=== PATIENT | male | born 1970 | race Two or more races ===

== ENCOUNTER → 2024-01-18 | Outpatient (CLI) | payer BC, SELFPAY ==
[2024-01-18 08:59] LABS: Glucose Estimated Average 223 mg/dL (80-131); Hemoglobin A1C 9.4 % Hgb (4.8-6.0)
[2024-01-18 09:04] LABS: Alanine Aminotransferase 30 U/L (10-49); Albumin, Serum 4.6 gm/dL (3.5-5.0); Albumin/Globulin Ratio 1.8 (1.2-2.2); Alkaline Phosphatase 54 U/L (46-116); Anion Gap 7 (7-16); Aspartate Amino Transferase 17 U/L (0-34); BUN/Creatinine Ratio 20 Ratio (12-20); Bilirubin,Total 0.4 mg/dL (0.3-1.2); Blood Urea Nitrogen 20 mg/dL (9-23); Calcium 9.4 mg/dL (8.3-10.6); Calcium (Corrected) 9.4 mg/dL (8.5-10.1); Carbon Dioxide 26.5 mMol/L (20.0-31.0); Cardiac Risk Estimate 3.2 RATIO (4.0-6.7); Chloride 104 mMol/L (98-107); Cholesterol 151 mg/dL (132-200); Globulin 2.6 gm/dL (2.3-3.5); Glucose 226 mg/dL (74-106); HDL Cholesterol 47 mg/dL (40-60); LDL Cholesterol,Calculated 84 mg/dL (0-130); Osmolality,Calculated 283 (275-295); Potassium 4.2 mMol/L (3.4-5.1); Sodium 137 mMol/L (136-145); Total Protein 7.2 gm/dL (5.7-8.2); Triglycerides 100 mg/dL (30-150); eGFR > 60 See Note
== END | disposition home or self-care (01) ==
LOC: COPL 06:49
PROVIDERS: PCP Family Medicine; Referring Provider Family Medicine; Visit Provider Family Medicine
DX: E78.2 Mixed hyperlipidemia (principal); E11.65 Type 2 diabetes mellitus with hyperglycemia; I10 Essential (primary) hypertension
CPT/HCPCS: 36415; 80053; 80061; 83036

== ENCOUNTER → 2024-06-27 | Outpatient (CLI) | payer BC, SELFPAY ==
[2024-06-27 08:08] LABS: Collection Type, Urine Clean Catch
[2024-06-27 08:41] LABS: Basophils # (Auto) 0.1 Thou/mm3 (0.0-0.2); Basophils % (Auto) 1 % (0-2.5); Eosinophils # (Auto) 0.2 Thou/mm3 (0.0-0.5); Eosinophils % (Auto) 3 % (0-10); Hematocrit 45.1 % (41.0-53.0); Hemoglobin 15.9 g/dL (13.5-16.0); Immature Granulocytes % (Auto) 0 % (0-0); Immature Granulocytes Auto 0.02 Thou/mm3 (0.00-0.00); Lymphocytes # (Auto) 1.8 Thou/mm3 (1.0-4.8); Lymphocytes % (Auto) 32 % (10-50); Mean Corpuscular HGB Conc 35.3 g/dl (31.0-37.0); Mean Corpuscular Volume 94 fL (80-100); Monocytes # (Auto) 0.5 Thou/mm3 (0.0-0.8); Monocytes % (Auto) 8 % (0-12); Neutrophils # (Auto) 3.1 Thou/mm3 (1.8-7.7); Neutrophils % (Auto) 55 % (37-80); Nucleated Red Blood Cell % 0 /100 WBC (0); Platelet Count 225 Thou/mm3 (140-440); RDW Standard Deviation 40.9 fL (35.1-43.9); Red Blood Count 4.82 Miln/mm3 (4.50-5.90); White Blood Count 5.6 Thou/mm3 (3.8-10.6)
[2024-06-27 08:45] LABS: Glucose Estimated Average 166 mg/dL (80-131); Hemoglobin A1C 7.4 % Hgb (4.8-6.0)
[2024-06-27 08:51] LABS: Bilirubin,Urine Negative (Negative); Blood,Urine Negative (Negative); Clarity,Urine Clear (Clear/Hazy); Color,Urine Lt-Yellow (Lt Yel-Yel); Glucose, Urine 4+ (Negative); Ketones,Urine Negative (Negative); Leukocyte Esterase,Urine Negative (Negative); Nitrite,Urine Negative (Negative); PH,Urine 5.5 (5.0-7.0); Protein,Urine Negative (Neg - Trace); RBC,Urine 3 /hpf (0-3); Specific Gravity,Urine 1.038 (1.001-1.035); Squamous Epithelial Cell,Urine < 1 /hpf (0-5); Urobilinogen,Urine Negative mg/dL (0.0-1.0); WBC,Urine < 1 /hpf (0-5)
[2024-06-27 08:52] LABS: Alanine Aminotransferase 22 U/L (10-49); Albumin, Serum 4.3 gm/dL (3.5-5.0); Albumin/Globulin Ratio 1.9 (1.2-2.2); Alkaline Phosphatase 50 U/L (46-116); Anion Gap 6 (7-16); Aspartate Amino Transferase 16 U/L (0-34); BUN/Creatinine Ratio 21 Ratio (12-20); Bilirubin,Total 0.5 mg/dL (0.3-1.2); Blood Urea Nitrogen 19 mg/dL (9-23); Calcium 8.8 mg/dL (8.3-10.6); Calcium (Corrected) 8.8 mg/dL (8.5-10.1); Carbon Dioxide 26.9 mMol/L (20.0-31.0); Cardiac Risk Estimate 2.8 RATIO (4.0-6.7); Chloride 109 mMol/L (98-107); Cholesterol 152 mg/dL (132-200); Creatinine (Component) 0.9 mg/dL (0.6-1.3); Globulin 2.3 gm/dL (2.3-3.5); Glucose 204 mg/dL (74-106); HDL Cholesterol 54 mg/dL (40-60); LDL Cholesterol,Calculated 77 mg/dL (0-130); Osmolality,Calculated 291 (275-295); Potassium 4.5 mMol/L (3.4-5.1); Sodium 142 mMol/L (136-145); Total Protein 6.6 gm/dL (5.7-8.2); Triglycerides 104 mg/dL (30-150); eGFR > 60 See Note
[2024-06-27 09:00] LABS: Creatinine MALB Rnd Ur 71 mg/dL (30-125); Microalbumin Creat Ratio 4 mg/gCrea (<30); Microalbumin, Random Urine 3 mg/L (0-300)
== END | disposition home or self-care (01) ==
LOC: COPL 07:00
PROVIDERS: PCP Family Medicine; Referring Provider Family Medicine; Visit Provider Family Medicine
DX: Z00.00 Encounter for general adult medical examination without abnormal findings (principal); E11.65 Type 2 diabetes mellitus with hyperglycemia; E78.2 Mixed hyperlipidemia; I10 Essential (primary) hypertension
CPT/HCPCS: 36415; 80053; 80061; 81001; 82043; 82570; 83036; 85025

== ENCOUNTER → 2024-11-28 | Outpatient (CLI) | payer BC, SELFPAY ==
[2024-11-28 09:00] LABS: Glucose Estimated Average 171 mg/dL (80-131); Hemoglobin A1C 7.6 % Hgb (4.8-6.0)
[2024-11-28 09:24] LABS: Alanine Aminotransferase 27 U/L (10-49); Albumin, Serum 4.2 gm/dL (3.5-5.0); Albumin/Globulin Ratio 1.8 (1.2-2.2); Alkaline Phosphatase 50 U/L (46-116); Anion Gap 8 (7-16); Aspartate Amino Transferase 20 U/L (0-34); BUN/Creatinine Ratio 13 Ratio (12-20); Bilirubin,Total 0.4 mg/dL (0.3-1.2); Blood Urea Nitrogen 12 mg/dL (9-23); Calcium 9.4 mg/dL (8.3-10.6); Calcium (Corrected) 9.4 mg/dL (8.5-10.1); Carbon Dioxide 26.4 mMol/L (20.0-31.0); Cardiac Risk Estimate 2.5 RATIO (4.0-6.7); Chloride 106 mMol/L (98-107); Cholesterol 140 mg/dL (132-200); Creatinine (Component) 0.9 mg/dL (0.6-1.3); Globulin 2.3 gm/dL (2.3-3.5); Glucose 165 mg/dL (74-106); HDL Cholesterol 56 mg/dL (40-60); LDL Cholesterol,Calculated 66 mg/dL (0-130); Osmolality,Calculated 283 (275-295); Potassium 5.3 mMol/L (3.4-5.1); Sodium 140 mMol/L (136-145); Total Protein 6.5 gm/dL (5.7-8.2); Triglycerides 88 mg/dL (30-150); eGFR > 60 See Note
== END | disposition home or self-care (01) ==
LOC: COPL 06:54
PROVIDERS: PCP Family Medicine; Referring Provider Family Medicine; Visit Provider Family Medicine
DX: E11.65 Type 2 diabetes mellitus with hyperglycemia (principal); E78.2 Mixed hyperlipidemia; I10 Essential (primary) hypertension
CPT/HCPCS: 36415; 80053; 80061; 83036